=== PATIENT | female | born 1945 | race African-American/Black ===

== ENCOUNTER 2016-04-08 05:38 | Observation (INO) ==
--- NOTE | 2016-04-04 13:21 | EKG Report ---
Stationary ECG Study 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
[2016-04-04 13:52] LABS: Basophils % 0.4 % (0.0-0.8); Eosinophils % 0.4 % (0.00-10.9); Hematocrit 41.1 VOL% (35.7-47.0); Hemoglobin 13.4 GM/DL (12.0-16.0); Lymphocytes # 1.9 10*3/uL (1.4-4.0); Lymphocytes % 41.6 % (21.3-54.2); Mean Corpuscular HGB Conc 32.6 GM/DL (32-36); Mean Corpuscular Hemoglobin 30 PG (27-34); Mean Platelet Volume 10.1 FL (9.6-12.0); Monocytes # 0.3 10*3/uL (0.11-0.8); Monocytes % 6.8 % (1.7-12.7); Neutrophils # 2.3 10*3/uL (1.4-7.4); Neutrophils % 50.8 % (38.7-73.9); Platelet Count 170 10*3/uL (130-400); Red Blood Count 4.42 10*6/uL (3.8-5.5); White Blood Count 4.6 10*3/uL (4.5-13.71)
--- NOTE | 2016-04-04 14:08 | XRay Report ---
Exam: XR chest 2V Date: 04/04/2016 1:06 PM Indication: Respiratory preoperative evaluation of the chest Comparison: None Technical:PA lateral Findings: The heart is at upper limits normal. Anterolateral marginal osteophytes are present. No obvious infiltrates or effusions. Prior cholecystectomy clips present. Mediastinum is intact. Impression: 1. No acute cardiopulmonary pathology 2. Degenerative spondylosis change thoracic spine 3. Prior cholecystectomy PROCEDURE INTERPRETED AT [facility] DEPARTMENT OF RADIOLOGY Final Report Signed by: Dr. Jermain Huff
[2016-04-04 14:32] LABS: Calcium 8.6 MG/DL (8.5-10.1); Osmolality,Calculated 289.6 MOS/KG (273-304); Potassium 4.4 MMOL/L (3.5-5.1)
[2016-04-08] MEDS ORDERED: DIAZEPAM 5 MG TABLET PO ONE (06:21)
[2016-04-08] MEDS ORDERED: LACTATED RINGERS 1,000 ML IV SCH (06:30)
[2016-04-08] MEDS ORDERED: PROPOFOL 200 MG/20 ML VIAL IV ONE (07:08)
[2016-04-08] MEDS ORDERED: SUCCINYLCHOLINE 200 MG/10 ML VIAL ONE (07:08)
[2016-04-08] MEDS ORDERED: ROCURONIUM 100 MG/10 ML VIAL IV ONE (07:08)
[2016-04-08] MEDS ORDERED: LIDOCAINE 2% 5 ML VIAL ONE (07:08)
[2016-04-08] MEDS ORDERED: ONDANSETRON 4 MG/2 ML VIAL ONE (07:08)
--- NOTE | 2016-04-08 07:15 | History and Physical Update ---
History and Physical Update - History and Physical H&P was reviewed, the patient examined and there: are no changes in the patients condition since last H&P was completed. - Dictation Physical: refer to scanned H&P
[2016-04-08] MEDS ORDERED: hydrALAZINE 20 MG/1 ML VIAL IV ONE (08:11)
[2016-04-08] MEDS ORDERED: MIDAZOLAM 2 MG/2 ML VIAL ONE (08:13)
[2016-04-08] MEDS ORDERED: fentaNYL 100 MCG/2 ML VIAL ONE (08:13)
[2016-04-08] MEDS ORDERED: hydrALAZINE 20 MG/1 ML VIAL ONE (08:16)
--- NOTE | 2016-04-08 08:18 | Operative Note ---
Pre-op diagnosis: postmenopausal bleeding Post-op diagnosis: other (postmenopausal bleeding, endometrial polyps) Procedure: Procedure:Fractionated dilatation and curettage with hysteroscopy Findings: Uterus mobile and anteverted cervix without any lesions vaginal tissue atrophic rectocele and cystocele noted multiple polypoid tissue within the uterine cavity Procedure was as follows: The patient was consented for hysteroscopy fractionated dilatation and curettage risks benefits alternatives and complications were reviewed with the patient the patient was amenable to the procedure. The patient was thus taken back to the operating room where general anesthesia was found to be adequate and the patient was prepped and draped in the usual fashion. A weighted speculum was patient patient vagina and the anterior lip of the cervix was grasped with single-tooth tenaculum. The cervix was dilated without any complications and the uterus was sounded to approximately 8 cm. Hysteroscope was then introduced into the cervix and polypoid tissue was noted throughout the uterine cavity. Hysteroscope was then removed and a fractionated curettage was performed. Once the curettage was performed and all the polyps were noted to be removed from the uterine cavity hysteroscope was reintroduced into the uterus and noted to be without any signs of perforation and the polyps were removed. The polypoid tissue was sent for frozen section and was later noted to be benign the hysteroscope was then removed from the patient's vagina and the tenaculum was removed from the anterior lip of cervix and was no bleeding and hemostasis was assured from the cervical os as well. Sponge lap and instrument counts were correct 3 and the patient was sent to the recovery room in stable condition. Anesthesia: GETA Surgeon / Physician: Mariah Delcid Estimated blood loss: minimal Specimens: other (endocervical and endometrial curettings, endometrial curettage frozen) Condition: stable Disposition: PACU Results - Labs CBC & BMP: 04/04/16 13:47 04/04/16 13:47 Discharge Plan - Discharge Medications No Action Lisinopril 20 mg PO DAILY - Follow Up or Referral - Forms/Instructions
--- NOTE | 2016-04-08 08:41 | Operative Note ---
Date of procedure: 04/08/16 Pre-op diagnosis: postmenopausal bleeding Post-op diagnosis: same Anesthesia: GETA Surgeon / Physician: Mariah Delcid Estimated blood loss: minimal Specimens: other (endocervical and endometrial curettage, frozen section of endometrial curettings) Condition: stable Disposition: PACU Results - Labs CBC & BMP: 04/04/16 13:47 04/04/16 13:47 Discharge Plan - Discharge Medications No Action Lisinopril 20 mg PO DAILY - Follow Up or Referral - Forms/Instructions
[2016-04-08] MEDS ORDERED: ONDANSETRON 4 MG/2 ML VIAL IV PRN (10:48)
[2016-04-08] MEDS ORDERED: MAGNESIUM HYDROXIDE SUSP 30 ML UDCUP PO PRN (10:48)
[2016-04-08] MEDS ORDERED: BISACODYL 10 MG SUPP RECTAL PRN (10:48)
[2016-04-08] MEDS ORDERED: ACETAMINOPHEN 325 MG TABLET PO PRN (10:48)
--- NOTE | 2016-04-08 10:56 | Event Note ---
The pt had an uncomplicated hysteroscopy D&C . Before and after her procedure it was noted that her blood pressure was out of control . We decided to admit for Blood pressure control and consult internal medicine. The pt and her daughter agree with the plan. If her blood pressure gets under control we will discharge her home tomorrow.
--- NOTE | 2016-04-08 11:09 | Hospitalist Consult Note ---
Assessment and Plan (1) Hypertension Status: Acute Assessment and plan: Start on Metoprolol 25mg PO BID and Norvasc 10mg Daily, firstdose now. Continue on Lisinopril. Monitor throughout today and tonight. She will need follow up with Dr. Dickerson next week. further plan and addendum to follow per Dr. Arias Current Visit: Yes History of Present Illness - Data of Consult Patient: new to practice Consult date: 04/08/16 - Consult Narrative Reason for consult: HTN management History of present illness: Ms. Allan is a 70 year old female who came in today for a D&C for post menopausal bleeding with Dr. Rowe. Her surgery was uncomplicated. However, before and after surgery, she was noted to be very hypertensive. Even during sedation and after IV Hydralazine, she remained hypertensive. We have been consulted for HTN management. Pt is seen post op and is awake and alert. She is in good spirits and has no complaint. She denies chest pain, headache, blurry vision, shortness of breath, n/v/d. She is noted to have trace edema to bilat lower extremities. she states this is common for her but never worsens. She is a pt of Dr. Dickerson, saw him recently and was changed from Bystolic to Lisinopril. Her PMH includes HTN. PSH includes todays D/C and choly. She does not smoke, drink or use drugs. CC: Mariah Saab- - Home Medications and Allergies Home Medications: Home Medications Medication Instructions Recorded Confirmed Type Lisinopril 20 mg PO DAILY 04/04/16 04/08/16 History Allergies/Adverse Reactions: Allergies Allergy/AdvReac Type Severity Reaction Status Date / Time No Known Allergies Allergy Unverified 04/08/16 06:16 Medical,Surgical,& Family Hx - Medical History Cardio: History of: Hypertension (MEDICATION) HEENT: History of: Eye Problem (READING GLASSES) - Surgical History Abdominal Surgeries: Surgical HX of: Cholecystectomy (15 YEARS) - Family History Family History: Reports;: Family Heart Disease (MOTHER), Family Hypertension ( MOTHER) - Social History Smoking Status: Never smoker Frequency of Alcohol Use: None Type of Drug Use: None 12 point system: reviewed and no additional remarkable complaints except as stated Exam - Constitutional Vitals: Period Temp Pulse Resp BP Sys/Moore Pulse Ox Last 24 Hr 97.1 F-97.7 F 66-79 16-20 164-222/78-107 97-100 General appearance: no acute distress, over weight - Head Head exam: Present: normal inspection, normocephalic - Eye Eye exam: Present: EOMI. Absent: scleral icterus Pupils: Present: DEVIN, normal accommodation - ENT ENT exam: Present: normal exam, normal oropharynx - Neck Neck exam: Present: normal inspection. Absent: lymphadenopathy - Respiratory Respiratory exam: Present: clear to auscultation bilaterally. Absent: wheezes - Cardiovascular Cardiovascular exam: Present: regular rate and rhythm. Absent: tachycardia - GI/Abdominal GI/Abdominal exam: Present: normal bowel sounds, soft. Absent: tenderness - Extremities Exam Extremities exam: Present: normal inspection, full ROM. Absent: edema - Back Exam Back exam: Present: normal inspection. Absent: muscle spasm - Neurological Exam Neurological exam: Present: alert, oriented X3 - Psychiatric Psychiatric exam: Present: normal affect, normal mood - Skin Skin exam: Present: normal color, warm, dry Results - Labs CBC & BMP: 04/04/16 13:47 04/04/16 13:47 Lab Results: I have reviewed the past 24 hour labs Specialty Discharge - Follow Up or Referrals
[2016-04-08] MEDS ORDERED: amLODIPine 5 MG TABLET ONE (11:26)
[2016-04-08] MEDS ORDERED: METOPROLOL TARTRATE 25 MG TABLET ONE (11:27)
[2016-04-08] MEDS: amLODIPine 5 MG TABLET PO SCH (11:29)
[2016-04-08] MEDS: METOPROLOL TARTRATE 25 MG TABLET PO SCH ×2 (11:29→22:45)
--- NOTE | 2016-04-08 14:32 | Anesthesia ---
Anesthesia Post OP - Post Ansesthetic Evaluation Patient seen in post op: Yes Resp: within normal limits CV: within normal limits Mental: within normal limits Temp: within normal limits [id number]: within normal limits Nausea and Vomiting: within normal limits Pain: within normal limits
[2016-04-08] MEDS: DOCUSATE SODIUM 100 MG CAPSULE PO SCH (22:45)
[2016-04-09 07:15] VITALS: BP 163/82
--- NOTE | 2016-04-09 08:52 | Hospitalist Progress Note ---
Assessment and Plan - Time spent with patient Time spent with patient: Greater than 30 minutes (1) Hypertension Status: Acute Assessment and plan: Better controlled. Recommend Continuing amlodipine and beta candelario at discharge in addition to home lisinopril. Current Visit: Yes Hospitalist: Subjective Interval history: No complaints, no overnight events. Exam - Constitutional Vitals: Period Temp Pulse Resp BP Sys/Moore Pulse Ox Last 24 Hr 96.7 F-98.4 F 64-78 18-20 153-214/71-107 96-99 General appearance: no acute distress - Head Head exam: Present: normocephalic, atraumatic - Eye Eye exam: Present: EOMI Pupils: Present: DEVIN - ENT ENT exam: Present: normal exam - Neck Neck exam: Present: normal inspection - Respiratory Respiratory exam: Present: clear to auscultation bilaterally. Absent: rhonchi, wheezes - Cardiovascular Cardiovascular exam: Present: regular rate and rhythm. Absent: gallop, rubs, systolic murmur - GI/Abdominal GI/Abdominal exam: Present: normal bowel sounds, soft. Absent: distended, firm , guarding, tenderness, rebound - Extremities Exam Extremities exam: Present: normal inspection. Absent: calf tenderness, edema Results - Labs CBC & BMP: 04/04/16 13:47 04/04/16 13:47 Lab Results: I have reviewed the past 24 hour labs Specialty Discharge - Follow Up or Referrals Follow up with: Mariah Delcid MD [Physician] - (Call office to schedule 2 week appointment.)
[2016-04-09] MEDS ORDERED: LISINOPRIL 20 MG TABLET PO SCH (09:30)
[2016-04-09] MEDS: amLODIPine 5 MG TABLET PO SCH (09:43)
[2016-04-09] MEDS: DOCUSATE SODIUM 100 MG CAPSULE PO SCH (09:44)
[2016-04-09] MEDS: METOPROLOL TARTRATE 25 MG TABLET PO SCH (09:44)
--- NOTE | 2016-04-09 09:56 | Discharge Summary ---
Hospital Course - Hospital Course Hospital Course: ept was admitted for 23 hour obs after a routine uncomplicated hysteroscopy D&C for PMB due to uncontrolled high blood pressure. The hospitalist was consulted . her blood pressure was controlled with addition of further medications. The pt has had no complaints during her stay. Her vaginal bleeding is light and she has no pain. Specialty Discharge - Follow Up or Referrals Follow up with: Mariah Delcid MD [Physician] - (Call office to schedule 2 week appointment.) Discharge Plan - Discharge Data Disposition: Disch To Home/Self Care Condition at Discharge: Stable Discharge Diet: low salt diet Activity: resume usual activities as tolerated Hygiene: may shower Weight Bearing at Discharge: full weight bearing Contact your physician if you experience:: fever over 101, Difficulty voiding, Redness or swelling, Nausea/Vomiting, Shortness of breath, Bleeding, pain uncontrolled by pain medications - Discharge Medications New Acetaminophen Tab [Tylenol Tab] 325 mg PO Q6H PRN #0 tablet PRN Reason: Headache Or Rest Bisacodyl Supp [Dulcolax Supp] 10 mg RECTAL ONCE PRN #0 supp PRN Reason: Constipation Docusate Sodium Cap [Colace Cap] 100 mg PO BID capsule Lisinopril [Prinivil] 20 mg PO DAILY #0 tablet Magnesium Hydroxide Susp [Milk of Magnesia] 15 ml PO QID PRN #0 udcup PRN Reason: Constipation Metoprolol Tartrate Tab [Lopressor Tab] 25 mg PO BID #60 tablet amLODIPine [Norvasc] 10 mg PO DAILY #30 tablet Continue Lisinopril 20 mg PO DAILY - Follow Up or Referral Follow Up: Mariah Delcid MD [Physician] - (Call office to schedule 2 week appointment.) Garry Dickerson MD [Primary Care Provider] - 1 Week - Forms/Instructions Exam - Constitutional Vitals: Period Temp Pulse Resp BP Sys/Moore Pulse Ox Last 24 Hr 96.7 F-98.4 F 64-78 18-20 153-193/71-107 96-99 General appearance: normal weight, no acute distress - Respiratory Respiratory exam: Absent: accessory muscle use - Cardiovascular Cardiovascular exam: Present: regular rate and rhythm - GI/Abdominal GI/Abdominal exam: Absent: guarding, rebound - Extremities Exam Extremities exam: Absent: calf tenderness - Neurological Exam Neurological exam: Present: alert, oriented X3 - Psychiatric Psychiatric exam: Present: normal affect DS: Provider Date of admission: 04/08/16 10:48 Primary care physician: Garry Dickerson MD Attending physician on admission: Mariah Saab- Consults: 04/08/16 10:52 Consult to Physician [CONS] Routine Comment: hospitalist space operations officer , spoke to Bridget Parks Consulting Provider: Consulting Provider Notified: Yes Discharging clinician: Mariah Saab- Expected date of discharge: 04/09/16
--- NOTE | 2016-04-11 12:42 | Pathology Report from [facility] ---
ACCESSION # : [id number] PATIENT NAME : Courtney Ely ORDERING DR : Mariah Erickson MD CLINICAL HX: PMB, Abn pap smear POST-OP DX: Same SPECIMEN INFO: #1 Endocervical #2 Endometrial (FS) #3 Endometrial #4 Cervix tissue GROSS DESCRIPTION: #1 Received in formalin labeled "COURTNEY ELY & #1" consists of a scant specimen and consists of fragments of hyperemic mucoid material with possible soft tissue that measures roughly 0.5 x 0.4 cm. Submitted in cassette #1.#2 Received fresh for frozen section labeled "COURTNEY ELY & #2" is an aggregate of hemorrhagic to ramirez tissue measuring 3 x 2 cm. Steam Box Hand sections are submitted in cassette 2A for frozen section and in cassette 2B for permanent section.#3 Received in formalin labeled "COURTNEY ELY and #3" consists of an aggregate of red-ramirez soft tissue and clotted blood that measures 3.4 x 3.8 cm. Submitted entirely in cassettes 3A thru 3C.# 4 Received in formalin labeled "COURTNEY ELY and #4" consists of a specimen sock which contains thick mucoid red-ramirez material with a 0.8 x 0.5 cm fragment of ramirez tissue. Mucus and tissue measures in aggregate 2.8 x 2.0 cm. Submitted in cassette #4. DIAGNOSIS FOR COURTNEY ELY: #1 ENDOCERVICAL TISSUE: Fragments of benign endocervical glandular epithelium, mucous and blood. No evidence of dysplasia or malignancy.#2 ENDOMETRIAL TISSUE: Endometrial polyp with focal cystic change and focal necrosis. No evidence of malignancy.#3 ENDOMETRIAL TISSUE: Endometrial polyp with simple endometrial hyperplasia. No evidence of malignancy.#4 CERVICAL TISSUE: Proteinaceous debris, cervical mucous and scant fragments of benign endocervical glandular epithelium. No squamous epithelium identified. SERVICE DATE: 04/08/2016 REPORT DATE: 04/11/2016 PATHOLOGIST: Nazia Kennedy III, M.D. MTDD
== END 2016-04-09 11:00 | disposition home or self-care (01) ==
LOC: N.OB 05:38 → N.OR 05:38 → N.SDSINP 05:40 → N.OB 12:34
PROVIDERS: ADMIT Obstetrics & Gynecology; ATTEND Obstetrics & Gynecology